=== PATIENT | male | born 1965 | race Caucasian/White ===

== ENCOUNTER 2018-08-26 22:27 | Emergency (ER) | payer BC ==
[~2018-08-26] VITALS: Ht 180.3 cm; Wt 83.9 kg
--- NOTE | 2018-08-26 22:41 | NUR ---
Pt ambulates to ER with c/o hiccups x 2 days. Denies any other complaints. No chest pain/sob. No GI/ distress. No N/V/D. at bedside.
[2018-08-26] MEDS ORDERED: chlorproMAZINE 25 MG TABLET PO STA (22:47)
--- NOTE | 2018-08-26 22:49 | NUR ---
Dr. Nasir ESPAÑA MD at bedside to evaluate pt.
[2018-08-26] MEDS ORDERED: chlorproMAZINE 25 MG TABLET ONE (23:07)
--- NOTE | 2018-08-26 23:41 | NUR ---
Note patone in EDM - 08/27/18 at 0019 by SAY Pt ambulates to ER with c/o hiccups x 2 days. Denies any other complaints. No chest pain/sob. No GI/ distress. No N/V/D. at bedside.
[2018-08-26] MEDS ORDERED: chlorproMAZINE 50 MG/2 ML AMPUL ONE (23:57)
[2018-08-26] MEDS ORDERED: chlorproMAZINE INJ 50 MG in IV NORMAL SALINE 50 ML IV STA (23:58)
[2018-08-27] MEDS ORDERED: MAG HYDROX/AL HYDROX/SIMETH 30 ML LIQUID UDC PO ONE
[2018-08-27] MEDS ORDERED: DICYCLOMINE HCL LIQ 10 MG/5 ML UDC PO ONE
[2018-08-27] MEDS: chlorproMAZINE 50 MG/2 ML AMPUL IM ONE ×2 (00:05→00:06)
[2018-08-27] MEDS ORDERED: MAG HYDROX/AL HYDROX/SIMETH 30 ML LIQUID UDC ONE (00:12)
[2018-08-27] MEDS ORDERED: DICYCLOMINE HCL LIQ 10 MG/5 ML UDC ONE (00:12)
--- NOTE | 2018-08-27 00:47 | NUR ---
Patient discharged to home in stable conditon. Written and verbal after care instructions given. Patient verbalizes understanding of instructions. Instructed pt on side effects of medication administerd. Monitored pt for 15 min after administration. Pt instructed to sit upright and stand for few min before walking. Assisted 2-person to car. Instructed to obtain help for getting pt into home safely. Vital signs are stable.
[2018-08-27 00:57] VITALS: BP 122/52
== END 2018-08-27 00:58 | disposition home or self-care (01) ==
LOC: ER 22:30
DX: R06.6 Hiccough (principal); Z87.891 Personal history of nicotine dependence
CPT/HCPCS: 96374; 99284; J3230; Q0161 ×2; A4663; J3490

== ENCOUNTER 2025-01-15 20:35 | Emergency (ER) | payer BC ==
[~2025-01-15] VITALS: Ht 177.8 cm; Wt 88.9 kg
[2025-01-15] MEDS ORDERED: METOCLOPRAMIDE HCL 10 MG/2 ML VIAL ONE (21:03)
[2025-01-15 21:04] LABS: PLATELET COUNT (AUTO) 219 K/uL (152-348); RED BLOOD CELL COUNT(AUTO) 4.27 MIL/uL (4.06-5.63); RED CELL DISTRIBUTION WIDTH 13.8 % (12.1-16.2); WHITE BLOOD COUNT (AUTO) 6.4 K/uL (3.6-10.2)
[2025-01-15 21:12] LABS: CREATININE 1.1 mg/dL (0.6-1.3); SODIUM SERUM 143.0 mmol/L (136-145); UREA NITROGEN, BLOOD 16.0 mg/dL (7-18)
[2025-01-15] MEDS: METOCLOPRAMIDE HCL 10 MG/2 ML VIAL IV ONE (21:17)
[2025-01-15 21:18] LABS: ASPARTATE AMINOTRANSFERASE 15.0 U/L (15-37); TOTAL PROTEIN, SERUM 7.2 g/dL (6.4-8.2)
[2025-01-15] MEDS ORDERED: chlorproMAZINE 50 MG/2 ML AMPUL ONE (21:19)
[2025-01-15] MEDS: chlorproMAZINE 50 MG/2 ML AMPUL IM ONE (21:23)
[2025-01-15 22:43] LABS: *BILIRUBIN,URIN NEGATIVE (NEGATIVE); *BLOOD, URINE NEGATIVE (NEGATIVE); *CLARITY,URINE CLEAR (CLEAR); *COLOR,URINE YELLOW (YELLOW); *KETONES,URINE NEGATIVE (NEGATIVE); *PROTEIN,URINE NEGATIVE (NEGATIVE); *UROBILINOGEN,URINE 0.2 E.U./dl (NORMAL); LEUKOCYTE ESTERASE ,URINE NEGATIVE (NEGATIVE); NITRITE, URINE NEGATIVE (NEGATIVE); UGLUCOSE NEGATIVE (NEGATIVE)
[2025-01-15 23:03] VITALS: BP 126/72
[2025-01-15] MEDS ORDERED: CHLO10TA5 PO (23:11)
[2025-01-15 23:35] VITALS: BP 122/69; TEMP 98; O2SAT 98
== END 2025-01-15 23:32 | disposition home or self-care (01) ==
LOC: ER 20:35
DX: R06.6 Hiccough (principal); F17.200 Nicotine dependence, unspecified, uncomplicated; F41.9 Anxiety disorder, unspecified
CPT/HCPCS: 99284; 96374; 80053; 81003; 83690; 85025; 36415; 96372; Q0161 ×2; J3230; J2765; A4606; A4663